=== PATIENT | female | born 1970 | race Caucasian/White ===

== ENCOUNTER 2017-04-05 11:14 | Day surgery (SDC) | payer OTHER ==
[~2017-04-05 11:14] MED LIST: Buffered Lidocaine 0.9% SYRIN* 5 ML/SYR SYRINGE INTRADERM ONE; Dexamethasone IV* 4 MG/ML 1 ML (4 MG) IV SLOW PU ONE
[2017-04-05] MEDS ORDERED: Dexamethasone IV* 4 MG/ML 1 ML (4 MG) ONE (12:36)
[2017-04-05] MEDS ORDERED: Clindamycin 900 MG IVPREMIX(* 900 MG/50 ML SDV IV ONE (12:36)
[2017-04-05] MEDS ORDERED: Bupivacaine 0.25% SDV* 30 ML ONE (13:27)
[2017-04-05] MEDS ORDERED: Scopolamine 1.5 mg* PATCH ONE (13:36)
[2017-04-05] MEDS ORDERED: methylPREDNISolone ACETATE 80* 80 MG/ML 1 ML VIAL ONE (13:38)
[2017-04-05] MEDS ORDERED: Midazolam* 1 MG/ML 2 ML VIAL (2 MG) ONE (13:39)
[2017-04-05] MEDS ORDERED: Propofol* 10 MG/ML 20 ML BTL IV PUSH ONE (13:40)
[2017-04-05] MEDS ORDERED: fentaNYL* 50 MCG/ML 2 ML VIAL (100 MCG VIAL) ONE (13:40)
[2017-04-05] MEDS ORDERED: Ondansetron INJ* 2 MG/ML VIAL ONE (13:40)
[2017-04-05] MEDS ORDERED: Ketorolac INJ* 30 MG/ML 1 ML VIAL ONE (13:40)
[2017-04-05] MEDS ORDERED: ROPIVACAINE 5 MG/ML 30 ML BTL (0.5%) ONE (13:44)
[2017-04-05] MEDS ORDERED: Atracurium* 10 MG/ML 10 ML VIAL ONE (13:44)
[2017-04-05] MEDS ORDERED: Scopolamine 1.5 mg* PATCH TRANSDERM SCH (14:00)
[2017-04-05] MEDS ORDERED: Glycopyrrolate IV* 0.2 MG/ML 1 ML VIAL ONE (14:24)
[2017-04-05] MEDS ORDERED: Naloxone* 0.4 MG/ML 1 ML VIAL IV PRN (15:24)
[2017-04-05] MEDS ORDERED: fentaNYL* 50 MCG/ML 2 ML VIAL (100 MCG VIAL) IV PRN (15:24)
[2017-04-05] MEDS ORDERED: DiMENhydriNATE IV* 50 MG/ML VIAL IV PUSH PRN (15:24)
[2017-04-05] MEDS ORDERED: Ondansetron INJ* 2 MG/ML VIAL IV PRN (15:24)
[2017-04-05] MEDS ORDERED: oxyCODONE/Acetamin 5/325 MG* TAB PO PRN (15:24)
[2017-04-05 16:29] VITALS: BP 102/60
--- NOTE | 2017-04-09 05:27 | OP ---
DATE OF OPERATION: 04/05/17 - [facility] DATE OF : 72 SURGEON: Merari Garcia MD RN VISITING: YELENA Winters. An medical office assistant was needed for the entirety of the case to help with positioning, retraction, and was utilized throughout all portions of the case including manipulation. ANESTHESIOLOGIST: Wilfredo Wong MD ANESTHESIA: General interscalene block. PRE-OP DIAGNOSIS: Right shoulder adhesive capsulitis status post rotator cuff repair. POST-OP DIAGNOSIS: Right shoulder adhesive capsulitis status post rotator cuff repair. OPERATIVE PROCEDURE: 1. Right shoulder lysis of adhesion. 2. Revision, decompression, bursectomy of subacromial space. 3. Manipulation under anesthesia. 4. Intraarticular injection with 80 mg of Depo-Medrol. INDICATIONS: Megan Garrido is a 47-year-old female, who underwent a rotator cuff repair on 01/06/16 along with biceps tenotomy. She had made gains with her motion and then plateaued. We tried antiinflammatories, injections, physical therapy to no avail. Risks and benefits of surgery were discussed at length, included but not limited to, bleeding; infection; damage to nerves, vessels, surrounding structures; wound nonhealing; persistent pain; need for further surgery; scarring; stiffness; incomplete relief of symptoms; risks of anesthesia; fracture; risk of DVT. She has elected to proceed. COMPLICATIONS: None. ESTIMATED BLOOD LOSS: Minimal. DESCRIPTION OF PROCEDURE: The patient was greeted in the preoperative area by the attending surgeon. Correct extremity was marked, consent was confirmed. The patient was then brought back to the operating suite, where she was placed in the supine position on the operating table. She underwent interscalene nerve block by the anesthesiologist, after which she underwent general anesthesia with endotracheal intubation, after which she was placed in left lateral decubitus position and all bony prominences were padded. The right shoulder was draped unsterile with 10 pounds of traction. The right shoulder was prepped and draped in the usual sterile fashion beginning with chlorhexidine soap, scrub, and alcohol wipe, and a final prep with ChloraPrep. After appropriate surgical pause indicating side, site, procedure, and administration of antibiotics, the standard posterior lateral portal was made sharply with a 11 blade. Scope was introduced into the joint. The glenohumeral joint had some mild chondrosis that was present. The superior labrum was intact. Anterior posterior labrum had mild fraying. There was a thick shelf of tissue obscuring the supraspinatus tendon. The interval space had significant amounts of thickening and capsulitis such that it was difficult to get the anterior portal, and once this was established though the electrocautery device was used to remove and release them at the interval space , this allowed for some mobilization of the shoulder joint. Once this was done with careful blunt and electrocautery dissection, the anterior capsule was carefully released under direct visualization. The subscap was then carefully mobilized. Internal and external rotation was obtained and it was found to be more mobile. The subscap was identified and found to be intact. The undersurface of the rotator cuff was found to be intact as well. Once the intraarticular portion was completed, attention was directed towards the subacromial space. The scope was introduced into the subacromial space. Lateral portal was made in an outside-in fashion. There was abundant thick bursa that was present. This was removed using a shaver. There was also evidence of adhesions in the subdeltoid space, particularly anteriorly and posteriorly. These were carefully released with care to preserve the rotator cuff. The sutures were identified. There was no evidence of tearing. There were no loose bodies. Once the debridement was complete, the final images were obtained. An 18-gauge needle was placed intraarticularly under arthroscopic visualization. The wounds were copiously irrigated and closed with 3-0 nylon. The joint was intraarticularly injected with 80 mg of Depo-Medrol. Sterile dressings were applied. At this point, the patient was kept in lateral position and gentle manipulation was done. Preoperatively, her forward flexion was found to be about 145 with gentle manipulation and was found to get to 150 degrees forward flexion, abduction to 150 degrees, external rotation initially preoperatively was to about 10 or 15 degrees and intraoperatively, it manipulated to 70 degrees. Sterile dressings were applied as well as a Cryo/Cuff and a regular sling. She was awoken from anesthesia and was transferred to the PACU in stable condition. POSTOPERATIVE PLAN: She will be nonweightbearing. She will start physical therapy tomorrow. She will be discharged on pain medication and antibiotics. I will see the patient back in 10 to 14 days. [id number]/[facility] #: [id number] MILAN
== END 2017-04-05 16:34 | disposition home or self-care (01) ==
LOC: OREAST 11:14
PROVIDERS: ATTEND Orthopaedic Surgery
DX: M75.01 Adhesive capsulitis of right shoulder (principal); G89.18 Other acute postprocedural pain; J45.909 Unspecified asthma, uncomplicated; E03.9 Hypothyroidism, unspecified; K21.9 Gastro-esophageal reflux disease without esophagitis
CPT/HCPCS: 81025; A9270-GY; J1040; J1100; J1885; J2250; J2405; J2704; J2795; J3010

== ENCOUNTER 2018-12-20 11:17 | Emergency (ER) | payer OTHER ==
[2018-12-20 11:35] LABS: ABS Basophils 0.1 10^3/ul (0-0.2); ABS Eosinophils 0.2 10^3/ul (0-0.6); ABS Lymphocytes 1.6 10^3/ul (1.0-4.8); ABS Monocytes 0.4 10^3/ul (0-0.8); ABS Neutrophils 3.4 10^3/ul (1.5-7.7); Eosinophil % 4.4 %; Hematocrit 39 % (35-47); Hemoglobin 13.7 g/dL (12.0-16.0); Lymphocyte % 27.5 %; Mean Corpuscular HGB Conc 35 g/dL (31-36); Mean Corpuscular Hemoglobin 32 pg (27-31); Mean Corpuscular Volume 90 fL (80-97); Mean Platelet Volume 8.3 fL (7.4-10.4); Nucleated Red Blood Cells % 0.1; Platelet Count 250 10^3/uL (150-450); Red Blood Count 4.32 10^6 /uL (3.70-4.87); Red Cell Distribution Width 13 % (10-15); White Blood Count 5.7 10^3/uL (3.5-10.8)
[2018-12-20 11:53] LABS: Albumin 4.4 g/dL (3.2-5.2); Albumin/Globulin Ratio 1.5 (1-3); BUN/Creatinine Ratio 14.6 (8-20); C Reactive Protein 9.14 mg/L (<8.01); Calcium 9.6 mg/dL (8.6-10.3); EGFR African American 82.3 (>60); Globulin 2.9 g/dL (2-4); Potassium 3.8 mmol/L (3.5-5.0); Total Bilirubin 0.5 mg/dL (0.2-1.0); Total Protein 7.3 g/dL (6.4-8.9)
[2018-12-20 12:37] VITALS: BP 114/64
--- NOTE | 2018-12-20 16:09 | ED ---
Abdominal Pain/Female - HPI Summary HPI Summary: This patient is a 48-year-old female who presents to the ED with right upper quadrant pain radiating to the right shoulder into the epigastric region 2 days. She states she has had this 3 years ago and was diagnosed with biliary colic. She had seen a surgeon as well as a GI specialist. She opted not to have surgery at the time as her symptoms resolved spontaneously. Over the past 2 days, she has been endorsing nausea without vomiting, right upper quadrant pain which is worse after eating, specifically with fatty foods, resolves spontaneously after 1-2 hours and improves with decreased PO intake. She states however she does have some pain even with water. She continues on her diclofenac medication for her right shoulder and Nexium for her GERD sxs and she does have a history of hiatal hernia. Recent endoscopy 3 months ago revealed no acute findings. - History of Current Complaint Chief Complaint: EDAbdPain Stated Complaint: ABD PAIN/BACK/CHEST PAIN PER PT Time Seen by Provider: 12/20/18 11:30 Hx Obtained From: Patient Hx Last Menstrual Period: Ablation, doesn't have periods ?: No Onset/Duration: Sudden Onset Timing: Constant Severity Initially: Moderate Severity Currently: Mild Pain Intensity: 2 Pain Scale Used: 0-10 Numeric Location: Discrete At: RUQ Radiates: No Radiates to: Other - upper shoulder and epigastric region Character: Cramping Aggravating Factor(s): Food Alleviating Factor(s): Spontaneous Resolution Associated Signs and Symptoms: Negative: Diaphoresis, Fever, Cough, Chest Pain, Blood in Stool, Urinary Symptoms, Decreased Appetite - Risk Factors Ectopic Risk Factor: Negative Ovarian Torsion Risk Factor: Negative Allergies/Adverse Reactions: Allergies Allergy/AdvReac Type Severity Reaction Status Date / Time gatifloxacin [From Tequin] Allergy hypoglycemi Verified 04/05/17 12:50 a montelukast [From Singulair] Allergy Hives Verified 04/05/17 12:50 Penicillins Allergy Tachycardia Verified 04/05/17 12:50 Sulfa (Sulfonamide Allergy passed out Verified 04/05/17 12:50 Antibiotics) ENVIRONMENTAL/SEASONAL Allergy ITCHY Uncoded 04/05/17 12:50 WATERY EYES, SNEEZING, CONGESTION, RUNNY NOSE SOME ADHESIVE TAPE Allergy RASH - Uncoded 04/05/17 12:50 UNSURE WHICH ONES Home Medications: Home Medications Cholecalciferol TAB* [Vitamin D TAB*] 1,000 unit PO DAILY 12/20/18 [History Confirmed 12/20/18] PMH/Surg Hx/FS Hx/Imm Hx Previously Healthy: Yes Endocrine/Hematology History: Reports: Hx Thyroid Disease - THYROIDECTOMY for graves disease Denies: Hx Diabetes, Hx Systemic Lupus Erythematosus Cardiovascular History: Denies: Hx Congestive Heart Failure, Hx Hypertension, Hx Pacemaker/ICD, Other Cardiovascular Problems/Disorders Respiratory History: Reports: Hx Asthma - R/T ALLERGY Denies: Hx Chronic Obstructive Pulmonary Disease (COPD), Other Respiratory Problems/Disorders GI History: Reports: Hx Gastroesophageal Reflux Disease, Hx Hiatal Hernia Denies: Hx Ulcer, Other GI Disorders History: Reports: Hx Kidney Infection, Other Problems/Disorders - HX OF BLADDER LIFT Denies: Hx Dialysis, Hx Renal Disease Musculoskeletal History: Reports: Hx Tendonitis - HX OF IN RIGHT SHOULDER Denies: Hx Rheumatoid Arthritis Sensory History: Reports: Hx Contacts or Glasses - glasses Denies: Hx Hearing Aid Opthamlomology History: Reports: Hx Contacts or Glasses - glasses Neurological History: Reports: Hx Migraine Denies: Other Neuro Impairments/Disorders Psychiatric History: Denies: Hx Panic Disorder - Cancer History Hx Chemotherapy: No Hx Radiation Therapy: No - Surgical History Surgery Procedure, Year, and Place: 1993 CSECTION, [facility]. 1996 BILATERAL TUBAL LIGATION, [facility] AND UTERINE ABLATION. 2001 LEFT ANKLE RECONSTRUCTION, [facility] [place]. 2004 RIGHT BREAST LUMPECTOMY (BENIGN), [facility] [place]. 2008 TOTAL THYROIDECTOMY ( GRAVES DISEASE), [facility] [place]. right shoulder, 2016, [facility] [place]. 2016, left knee, [facility]. 2007 EXCISION HEMANGIOMA RIGHT INDEX FINGER, [facility] [place]. 2010 DILATION, CURETTAGE, HYSTEROSCOPY, NOVASURE ABLATION, [facility] [place]. 2015 VAGINAL SLING, CYSTOSCOPY (BLADDER LIFT), [facility] [place]. 05/2015 LEFT KNEE MENISCUS REPAIR, [place]. 12/2015 - Rt RCT REPAIR Hx Anesthesia Reactions: Yes - n/v, scapalomine patch works - Immunization History Hx Pertussis Vaccination: No Immunizations Up to Date: Yes Infectious Disease History: No Infectious Disease History: Denies: Hx Hepatitis, Hx Human Immunodeficiency Virus (HIV), Traveled Outside the in Last 30 Days - Social History Occupation: Employed Full-time Lives: With Family Alcohol Use: None Alcohol Amount: 1-2 per year Hx Substance Use: No Substance Use Type: Reports: None Smoking Status (MU): Never Smoked Tobacco Review of Systems Negative: Fever, Chills, Fatigue, Skin Diaphoresis Negative: Palpitations, Chest Pain Positive: Abdominal Pain - right upper quadrant Genitourinary: Negative Positive: no symptoms reported, see HPI Negative: Arthralgia, Myalgia Neurological: Negative All Other Systems Reviewed And Are Negative: Yes Physical Exam Triage Information Reviewed: Yes Vital Signs On Initial Exam: Initial Vitals Temp Pulse Resp BP Pulse Ox 97.8 F 67 18 138/68 99 12/20/18 11:25 12/20/18 11:25 12/20/18 11:25 12/20/18 11:25 12/20/18 11:25 Vital Signs Reviewed: Yes Appearance: Positive: Well-Appearing, Well-Nourished Skin: Positive: Warm, Skin Color Reflects Adequate Perfusion Head/Face: Positive: Normal Head/Face Inspection Eyes: Positive: EOMI, WILLIAM, Conjunctiva Clear Neck: Positive: Supple, No Lymphadenopathy Respiratory/Lung Sounds: Positive: Clear to Auscultation, Breath Sounds Present Cardiovascular: Positive: RRR, Pulses are Symmetrical in both Upper and Lower Extremities Abdomen Description: Positive: Nontender, No Organomegaly, Soft, Other: - + muprhys sign Bowel Sounds: Positive: Present Musculoskeletal: Positive: Normal, Strength/ROM Intact Neurological: Positive: Speech Normal Psychiatric: Positive: Affect/Mood Appropriate AVPU Assessment: Alert Procedures - Sedation Patient Received Moderate/Deep Sedation with Procedure: No Diagnostics - Vital Signs Vital Signs Temp Pulse Resp BP Pulse Ox 12/20/18 13:01 98.7 F 66 15 114/64 94 12/20/18 12:11 62 14 114/64 99 12/20/18 11:25 97.8 F 67 18 138/68 99 - Laboratory Lab Results: Lab Results 12/20/18 12/20/18 12/20/18 Range/Units 11:29 11:29 11:29 WBC 5.7 (3.5-10.8) 10^3/uL RBC 4.32 (3.70-4.87) 10^6 /uL Hgb 13.7 (12.0-16.0) g/dL Hct 39 (35-47) % MCV 90 (80-97) fL MCH 32 H (27-31) pg MCHC 35 (31-36) g/dL RDW 13 (10-15) % Plt Count 250 (150-450) 10^3/uL MPV 8.3 (7.4-10.4) fL Neut % (Auto) 60.4 % Lymph % (Auto) 27.5 % [place] % (Auto) 6.5 % Eos % (Auto) 4.4 % Baso % (Auto) 1.2 % Absolute Neuts (auto) 3.4 (1.5-7.7) 10^3/ul Absolute Lymphs (auto) 1.6 (1.0-4.8) 10^3/ul Absolute Monos (auto) 0.4 (0-0.8) 10^3/ul Absolute Eos (auto) 0.2 (0-0.6) 10^3/ul Absolute Basos (auto) 0.1 (0-0.2) 10^3/ul Absolute Nucleated RBC 0.0 10^3/ul Nucleated RBC % 0.1 INR (Anticoag Therapy) 1.00 (0.82-1.09) Sodium 138 (135-145) mmol/L Potassium 3.8 (3.5-5.0) mmol/L Chloride 105 (101-111) mmol/L Carbon Dioxide 26 (22-32) mmol/L Anion Gap 7 (2-11) mmol/L BUN 13 (6-24) mg/dL Creatinine 0.89 (0.51-0.95) mg/dL Est GFR ( Amer) 82.3 (>60) Est GFR (Non-Af Amer) 68.0 (>60) BUN/Creatinine Ratio 14.6 (8-20) Glucose 93 (70-100) mg/dL Calcium 9.6 (8.6-10.3) mg/dL Total Bilirubin 0.50 (0.2-1.0) mg/dL AST 17 (13-39) U/L ALT 18 (7-52) U/L Alkaline Phosphatase 90 (34-104) U/L Troponin I 0.00 (<0.04) ng/mL C-Reactive Protein 9.14 H (<8.01) mg/L Total Protein 7.3 (6.4-8.9) g/dL Albumin 4.4 (3.2-5.2) g/dL Globulin 2.9 (2-4) g/dL Albumin/Globulin Ratio 1.5 (1-3) Lipase 18 (11.0-82.0) U/L Result Diagrams: 12/20/18 11:29 12/20/18 11:29 Lab Statement: Any lab studies that have been ordered have been reviewed, and results considered in the medical decision making process. Abdominal Pain Fem Course/Dx - Course Course Of Treatment: Physical examination, patient has positive Luna sign. No other pain throughout the abdomen. No CVA tenderness bilaterally. Pt states she has had this in the past and states her US was negative. Has not had sxs x 3 years. Labs obtained which are WNL. US gallbladder: Cholelithiasis versus biliary sludge without sonographic signs of acute inflammatory change or pathologic biliary obstruction. Possible hepatic steatosis. Pt improved while in the ED and currently asymptomatic. Patient is given Zofran and tramadol for at home for any symptoms. She is encouraged to decrease any fat intake and eat a bland diet. She will follow-up with surgery. Dx with biliary colic, although on the differential is GERD. - Diagnoses Differential Diagnosis: Positive: Other - biliary colic, biliary sludge, cholilithiasis, gallbladder dysfunction, GERD Provider Diagnoses: Biliary colic Discharge ED - Sign-Out/Discharge Documenting (check all that apply): Patient Departure - Discharge Plan Condition: Stable Disposition: HOME Prescriptions: Ondansetron ODT TAB* [Zofran 4 MG Odt TAB*] 4 mg PO Q6H PRN #12 tab.odt MDD 4 PRN Reason: Nausea traMADol TAB* [Ultram*] 50 mg PO Q8H PRN #12 tab MDD 3 PRN Reason: Pain Patient Education Materials: Biliary Colic (ED), Low Fat Diet (ED), Laparoscopic Cholecystectomy (DC) Referrals: Bello Nicolas MD [Primary Care Provider] - Jessenia Poe MD [Medical Doctor] - Additional Instructions: Please follow up with surgery - call today to make an appt Eat low fat diet and small amounts at a time For any nausea, zofran as needed For pain, tramadol 50mg up to three times daily as needed for pain - Billing Disposition and Condition Condition: STABLE Disposition: Home - Attestation Statements Provider Attestation: I was available for consultation for this patient. I did not evaluate the patient or participate in any medical decision making or disposition decisions unless I am specifically named in the chart as having consulted on the patient. If I have consulted on the patient, please see my own ED note on the patient encounter. Nigel Iyer MD
== END 2018-12-20 13:03 | disposition home or self-care (01) ==
LOC: ED 11:17
DX: K80.50 Calculus of bile duct without cholangitis or cholecystitis without obstruction (principal); R10.11 Right upper quadrant pain; K44.9 Diaphragmatic hernia without obstruction or gangrene; Z79.899 Other long term (current) drug therapy; E03.9 Hypothyroidism, unspecified; J45.909 Unspecified asthma, uncomplicated; K21.9 Gastro-esophageal reflux disease without esophagitis
CPT/HCPCS: 36415; 76705; 80053; 83690; 84484; 85025; 85610; 86140; 93005; 99282

== ENCOUNTER 2019-01-27 07:40 | Day surgery (SDC) | payer OTHER ==
[~2019-01-27 07:40] MED LIST changes: -Buffered Lidocaine 0.9% SYRIN* 5 ML/SYR SYRINGE INTRADERM ONE; +Buffered Lidocaine 1% SYRIN* 1 ML/SYRINGE INTRADERM ONE; -Dexamethasone IV* 4 MG/ML 1 ML (4 MG) IV SLOW PU ONE; +Famotidine IV* 10 MG/ML 2 ML (20 mg) IV ONE; +Lactated Ringers 1000 ML Bag* 1,000 ML IV SCH; +Scopolamine 1.5 mg* PATCH TRANSDERM SCH
[2019-01-27] MEDS ORDERED: Buffered Lidocaine 1% SYRIN* 1 ML/SYRINGE INTRADERM ONE (08:05)
[2019-01-27] MEDS ORDERED: Scopolamine 1.5 mg* PATCH ONE (08:05)
[2019-01-27] MEDS ORDERED: Famotidine IV* 10 MG/ML 2 ML (20 mg) ONE (08:05)
[2019-01-27] MEDS ORDERED: Midazolam* 1 MG/ML 5 ML VIAL (5 MG) ONE (08:16)
[2019-01-27] MEDS ORDERED: Bupivacaine 0.25% EPI 200,000* 30 ML SDV ONE (09:39)
[2019-01-27] MEDS ORDERED: fentaNYL* 50 MCG/ML 2 ML VIAL (100 MCG VIAL) ONE (09:39)
[2019-01-27] MEDS ORDERED: Rocuronium* 10 MG/ML VIAL ONE (09:41)
[2019-01-27] MEDS ORDERED: Sugammadex * 200 MG/2 ML VIAL IV PUSH ONE ×2 (09:54→10:17)
[2019-01-27] MEDS ORDERED: Propofol* 10 MG/ML 20 ML BTL ONE (09:58)
[2019-01-27] MEDS ORDERED: DiMENhydriNATE IV* 50 MG/ML VIAL ONE (09:58)
[2019-01-27] MEDS ORDERED: Lidocaine 2% PF * 5 ML VIAL ONE (09:58)
[2019-01-27] MEDS ORDERED: EPHEDrine (Pressors)* 50 MG/ML VIAL ONE (09:58)
[2019-01-27] MEDS ORDERED: Ondansetron INJ* 2 MG/ML VIAL ONE (09:58)
[2019-01-27] MEDS ORDERED: Dexamethasone IV* 4 MG/ML 1 ML (4 MG) ONE (09:58)
[2019-01-27] MEDS ORDERED: Succinylcholine* 20 MG/ML 10 ML VIAL ONE (09:58)
[2019-01-27] MEDS ORDERED: Ketorolac INJ* 30 MG/ML 1 ML VIAL ONE (09:58)
[2019-01-27] MEDS ORDERED: HYDROmorphone INJ1* 1 MG/ML SYRINGE ONE ×3 (10:09→11:47)
--- NOTE | 2019-01-27 10:58 | OP ---
Operative Report - Blank - Operative Report Date of Operation: 01/27/19 Note: OP NOTE Pre: Gallstones, right upper abdominal pain Post: Same Procedure; Laparoscopic cholecystectomy Surgeon: MD Nikko Asst; MD Justin Anes: General with local, Rosita Campbell EBL: min IVF one liter of saline Wound:2 Drain: none Specimen: gallbladder Complication: None Findings: Above-no acute or chronic inflammation
[2019-01-27] MEDS ORDERED: Acetaminophen IV 1GM/100ML * 1,000 MG/100 ML VIAL IVPB ONE (11:00)
[2019-01-27] MEDS ORDERED: Naloxone* 0.4 MG/ML 1 ML VIAL IV PRN ×2 (11:00→13:38)
[2019-01-27] MEDS ORDERED: HYDROmorphone INJ1* 1 MG/ML SYRINGE IV PRN ×2 (11:00→13:38)
[2019-01-27] MEDS ORDERED: DiMENhydriNATE IV* 50 MG/ML VIAL IV PUSH PRN ×2 (11:00→13:38)
[2019-01-27 12:12] VITALS: BP 110/62
--- NOTE | 2019-01-27 17:56 | OP ---
DATE OF OPERATION: 01/27/19 - [facility] DATE OF : 72 SURGEON: Evaristo El MD JANITOR CLEANER: Jose Manuel Anderson MD ANESTHESIOLOGIST: Dr. Becker. ANESTHESIA: General with local. PRE-OP DIAGNOSES: Right upper quadrant abdominal pain and cholelithiasis. POST-OP DIAGNOSES: Right upper quadrant abdominal pain and cholelithiasis. OPERATIVE PROCEDURE: Laparoscopic cholecystectomy. ESTIMATED BLOOD LOSS: Minimal. IV FLUIDS: 1 L of crystalloid. SPECIMENS: Gallbladder. DRAINS: None. COMPLICATIONS: None. WOUND CLASSIFICATION: 3. FINDINGS: No evidence of acute or chronic gallbladder inflammation, otherwise as above. DESCRIPTION OF PROCEDURE: Written informed consent was obtained, the abdomen was marked with indelible ink. Preoperative antibiotics were not administered as she has multiple antibiotic allergies and the risks were felt to outweigh the benefits of a prophylactic dose of antibiotic. She was taken to the operating room, placed in the supine position. Sequential compression devices and warming blanket were applied. General anesthesia was administered and the abdomen was prepped and draped in the usual sterile fashion. Time-out verification was completed. Initially, a small transverse incision was made just above the umbilicus in the midline. The peritoneal cavity was entered under direct vision. A 12 mm blunt port was inserted and the abdomen was insufflated to 15 mmHg. Under direct vision, a 12-mm epigastric port was placed and two 5-mm ports were placed in the right side of the abdominal wall. The gallbladder was identified. It was bluish in color without wall thickening or pericholecystic fluid or suggestions of acute or severe chronic inflammation. The liver was unremarkable. The stomach was normal. The gallbladder was grasped and elevated up over the liver bed. Initially, the infundibulum was identified and the peritoneum along the medial and lateral aspects of the infundibulum was divided and swept downwards to expose the cystic duct and cystic artery as they entered the gallbladder. I took a considerable portion of the inferior part of the gallbladder off the liver bed using a critical view technique to assure myself of the structures. The cystic duct did not appear to be dilated and was of expected size. This was doubly clipped and divided, and the artery was then doubly clipped and divided. The gallbladder was removed from the liver bed using cautery and placed in EndoCatch bag and brought out through the epigastric incision. Hemostasis was assured in the liver bed. All ports were removed under direct vision of the camera. There was a small amount of bleeding from the 12 mm epigastric port and a single 0 Vicryl suture was used to close the fascia using the Endoclose needle with good hemostasis. The umbilical fascia was closed with interrupted 0 Vicryl suture. The skin was approximated with subcuticular 4-0 Vicryl suture at all 4 incisions. Steri-Strips were applied. The patient tolerated the procedure well, was taken to the recovery room in stable condition. [id number]/[facility] #: [id number] [facility]ANE[facility]avier
== END 2019-01-27 12:56 | disposition home or self-care (01) ==
LOC: OR 07:40
PROVIDERS: ATTEND Surgery
PROC: 0FT44ZZ Resection of Gallbladder, Percutaneous Endoscopic Approach (ICD-10-PCS; principal; 2019-01-27 09:45)
DX: K80.10 Calculus of gallbladder with chronic cholecystitis without obstruction (principal); K21.9 Gastro-esophageal reflux disease without esophagitis; R10.11 Right upper quadrant pain; E89.0 Postprocedural hypothyroidism; Z88.0 Allergy status to penicillin; Z88.2 Allergy status to sulfonamides; Z88.8 Allergy status to other drugs, medicaments and biological substances
CPT/HCPCS: 88304; A9270-GY; J0330; J1100; J1170; J1240; J1885; J2250; J2405; J2704; J3010